=== PATIENT | female | born 1960 | race Caucasian/White ===

== ENCOUNTER 2024-03-12 15:57 | Emergency (ER) | payer MEDICARE, BC ==
[2024-03-12] MEDS ORDERED: Metoclopramide HCl 10 MG (2 mL) VIAL ONE (17:10)
[2024-03-12] MEDS ORDERED: diphenhydrAMINE 50 MG/ML VIAL ONE (17:10)
[2024-03-12] MEDS ORDERED: Sodium Chloride 0.9% 100 ML ONE (17:11)
[2024-03-12] MEDS ORDERED: Sodium Chloride 0.9% 1,000 ML ONE (17:11)
[2024-03-12 17:20] LABS: Anion Gap 14 mmol/L (10-20); BUN (Urea Nitrogen) 13 mg/dL (9.8-20.1); Calc. Creatinine Clearance 0 mL/min (70-130); Calcium 10.2 mg/dL (7.8-10.44); Carbon Dioxide 26 mmol/L (23-31); Chloride 104 mmol/L (98-107); Estimated GFR 97; Glucose 101 mg/dL (80-115); Potassium 3.8 mmol/L (3.5-5.1); Sodium 140 mmol/L (136-145)
[2024-03-12] MEDS ORDERED: Ketorolac Tromethamine 30 MG (1 mL) VIAL ONE (18:13)
== END 2024-03-12 20:35 | disposition home or self-care (01) ==
LOC: NAV ERS 15:57
DX: I10 Essential (primary) hypertension (principal); R51.9 Headache, unspecified; Z79.899 Other long term (current) drug therapy
CPT/HCPCS: 80048; J1200; J1885; J2765; J7030; 96365; 96375